=== PATIENT | female | born 1985 | race Caucasian/White ===

== ENCOUNTER 2017-02-23 17:18 | Emergency (ER) | payer OTHER ==
[2017-02-23 17:39] VITALS: BP 117/76; PULSE 69
[2017-02-23] MEDS ORDERED: LACTATED RINGER'S 1000 ML INJ 1,000 ML IV SCH (18:00)
--- NOTE | 2017-02-23 18:12 | PD ---
HPI Chief Complaint Headache nausea and vomiting leg swelling Date Seen: Feb 23, 2017 Time Seen: 18:00 Travel History International Travel<30 Days: No Contact w/Intl Traveler<30Days: No Known Affected Area: No History of Present Illness HPI Patient is 31-year-old white female at 24 weeks sees a doctor in [facility] presents now here with the headache nausea and vomiting through the day can't hold anything down, and some leg swelling. She has a history of headaches in the past has been given a prescription for Fioricet she's not taken that. She has tried Tylenol. She has been throwing up today and has not had any medication at home to treat that. She has no bleeding or leakage of fluid she's not desi now heart tones are within normal limits for 24 weeks Weeks Gestation: 24 Para: 0 : 1 History Past Medical History Narrative Medical Migraines Obstetric History Obstetric History Apparently in this her neural tube defect screen was positive because she is going to [place] for an amniocentesis to rule out spina bifida have any records on this just what she is telling us, also she was told that there was interruption of blood flow and the placenta on her last ultrasound Social History Alcohol Use: No Tobacco Use: No Substance Abuse: No Allergies-Medications (Allergen,Severity, Reaction): Uncoded Allergies: tetnus (Allergy, Unknown, 02/23/17) Review of Systems General / Constitutional: No: Fever, Weight Gain, Chills, Other Eyes: No: Diploplia, Blurred Vision, Visual changes, Pain, Photophobia HENT: Headaches, No: Vertigo, Lightheadedness Cardiovascular: No: Irregular Rhythm, Chest Pain or Discomfort, Palpitations, Tachycardia, Syncope, Varicosities, Edema, Cyanosis Respiratory: No: Cough, Short of Breath, Other Gastrointestinal: Nausea, Vomiting, No: Diarrhea Genitourinary: No: Decreased Urinary Output, Oliguria Musculoskeletal: No: Limited ROM, Weakness, Cramping, Edema, Pain Skin: No Rash, No Itching, No Dryness, No Lumps, No Change in Pigmentation, No Change in Nails, No Alopecia, No Lesions Neurologic: No: Weakness, Dizziness, Syncope, Focal Abnormalities, Coordination Problem, Headache, Slurred Speech, Seizures Psychiatric: No: Depression, Suicidal Ideations, Homicidal Ideation Endocrine: No: Heat Intolerance, Cold Intolerance, Polydipsia, Polyuria, Other Physical Exam Narrative GENERAL: Well-nourished, well-developed patient. SKIN: Warm and dry. HEAD: Normocephalic and atraumatic. EYES: No scleral icterus. No injection or drainage. ENT: No nasal drainage noted. Mucous membranes pink. Airway patent. NECK: Supple, trachea midline. No JVD. CARDIOVASCULAR: Regular rate and rhythm without murmurs, gallops, or rubs. RESPIRATORY: Breath sounds equal bilaterally. No accessory muscle use. BREASTS: Bilateral exam showed no masses , no retractions, no nipple discharge. ABDOMEN/GI: Abdomen soft, non-tender, bowel sounds present, no rebound, no guarding Gravid to [-24] weeks size Fundal Height: [-24] GENITOURINARY: External Genitalia: intact and normal in appearance BUS glands: [-] Cervix: [-post] Dilatation: [-0] Effacement: [-0] Station: [-3] Membranes: [intact ] Uterine Contractions: [none-] FHT's: Category: [1-] Baseline: [-133] Reactive: [-yes for 24 wks] Variability: [mod-] Decels: [0-] EXTREMITIES: No cyanosis or edema. BACK: Nontender without obvious deformity. No CVA tenderness. NEUROLOGICAL: Awake and alert. Motor and sensory grossly within normal limits. Five out of 5 muscle strength in all muscle groups. Normal speech. Data Data Orders Orders Vital Signs (Adult) .ON ADMISSION (02/23/17 18:03) ^ Labor Status (02/23/17 18:03) Lactated Ringer's 1000 Ml Inj (Lr 1000 M (02/23/17 18:03) Ondansetron Inj (Zofran Inj) (02/23/17 18:15) Metoclopramide Inj (Reglan Inj) (02/23/17 18:15) Meperidine Inj (Demerol Inj) (02/23/17 18:15) MDM Interpretation(s) This patient is 31-year-old white female at 24 weeks who sees in OB doctor for [facility] presents here though for headache nausea vomiting today and leg swelling. She will receive liter of IV fluid IV Zofran and Reglan as well as the IV Demerol for her headache Plan Plan to IV hydrate and medicate accordingly. Will discharge home on by mouth Phenergan she says she still has some Fioricet prescription at home she could feel and use but if she wants more we could possibly refill that. She needs follow-up with her OB provider as scheduled Diagnosis Diagnosis: Primary Impression: Nausea and vomiting during Additional Impression: Headache Disposition: DISCHARGE HOME Condition: Stable Scripts Promethazine Supp (Phenergan Supp) 25 Mg Supp 25 MG RECTAL Q6H Y for NAUSEA OR VOMITING, #6 SUPP 0 Refills Prov: Jarrett Preciado II, MD 02/23/17 Promethazine (Phenergan) 25 Mg Tablet 25 MG PO Q6H Y for NAUSEA OR VOMITING, #20 TAB 0 Refills Prov: Jarrett Preciado II, MD 02/23/17 Jarrett Preciado II, MD Feb 23, 2017 18:12
[2017-02-23] MEDS ORDERED: ONDANSETRON HCL 4 MG/2 ML VIAL IV PUSH ONE (18:15)
[2017-02-23] MEDS ORDERED: PROM25TA10 PO (18:15)
[2017-02-23] MEDS ORDERED: METOCLOPRAMIDE HCL 10 MG/2 ML VIAL IV PUSH ONE (18:15)
[2017-02-23] MEDS ORDERED: MEPERIDINE HCL 50 MG/ML VIAL IV PUSH ONE (18:15)
[2017-02-23] MEDS ORDERED: PROM1SUP7 RECTAL (18:16)
== END 2017-02-23 20:24 | disposition home or self-care (01) ==
LOC: HOBED 17:18
DX: O21.2 Late vomiting of pregnancy (principal); O26.892 Other specified pregnancy related conditions, second trimester; R51 Headache; Z3A.24 24 weeks gestation of pregnancy
CPT/HCPCS: 76815; 96361; 96374; 96375; 99285; J2175; J2405; J2765; J7120